=== PATIENT | female | born 1990 | race Two or more races ===

== ENCOUNTER 2016-07-05 10:11 | Emergency (ER) | payer MEDICAID ==
[~2016-07-05] VITALS: Ht 152.4 cm; Wt 83.0 kg
[2016-07-05 10:46] LABS: Basophils # (auto) 0 uL; Basophils % (auto) 0.3 % (0.0-2.0); Eosinophils # (auto) 0.1 uL; Eosinophils % (auto) 0.9 % (0.0-7.0); Hematocrit 47.5 % (36.0-46.0); Hemoglobin 16.1 g/dL (12.2-16.2); Lymphocytes # (auto) 2.1 uL; Lymphocytes % (auto) 30.6 % (10.0-50.0); Mean Corpuscular Hemoglobin 29.1 pg (28.0-32.0); Mean Corpuscular Volume 85.6 fL (80.0-100.0); Mean Platelet Volume 9.2 fL (7.4-10.4); Monocytes # (auto) 0.5 uL; Monocytes % (auto) 7.4 % (0.0-12.0); Neutrophils # (auto) 4.1 uL; Neutrophils % (auto) 60.8 % (37.0-80.0); Platelet Count (auto) 302 10^3/uL (140-450); White Blood Cell 6.8 10^3/uL (4.4-10.8)
[2016-07-05 10:53] LABS: Urine Bilirubin Negative (Negative); Urine Color Yellow (Yellow); Urine Glucose Normal (Normal); Urine Ketone Negative (Negative); Urine Mucus FEW (None Seen); Urine Nitrite Negative (Negative); Urine RBC 1 /hpf (0 - 4); Urine Squamous Epithelial Cell FEW /hpf (<5); Urine Urobilinogen Normal (Negative); Urine pH 5.5 (5.0-8.0)
[2016-07-05 10:54] LABS: Urine Blood 1+ /uL (Negative)
[2016-07-05 11:10] LABS: Albumin 4.4 g/dL (3.4-5.0); BUN/Creatinine Ratio 14.3; Bilirubin, Total 0.3 mg/dL (0.2-1.0); Calcium 9.8 mg/dL (8.5-10.1); Potassium 3.8 mmol/L (3.5-5.1)
[2016-07-05 11:20] VITALS: BP 117/87
== END 2016-07-05 12:49 | disposition home or self-care (01) ==
LOC: ER 10:15
DX: E86.0 Dehydration (principal)
CPT/HCPCS: 36415; 80053; 81001; 85025

== ENCOUNTER 2016-09-20 01:40 | Emergency (ER) | payer MEDICAID ==
[~2016-09-20] VITALS: Ht 152.4 cm; Wt 82.6 kg
[2016-09-20 01:59] LABS: Urine RBC None Seen /hpf (0 - 4)
[2016-09-20 02:06] LABS: Urine Bilirubin Negative (Negative); Urine Blood Negative /uL (Negative); Urine Color Yellow (Yellow); Urine Glucose Normal (Normal); Urine Ketone Negative (Negative); Urine Nitrite Negative (Negative); Urine Squamous Epithelial Cell FEW /hpf (<5); Urine Urobilinogen Normal (Negative); Urine pH 6.5 (5.0-8.0)
[2016-09-20 02:15] LABS: Basophils # (auto) 0 uL; Basophils % (auto) 0.5 % (0.0-2.0); CONDITION Y; Eosinophils # (auto) 0.1 uL; Eosinophils % (auto) 0.7 % (0.0-7.0); Hematocrit 39.9 % (36.0-46.0); Hemoglobin 13.6 g/dL (12.2-16.2); Lymphocytes # (auto) 3.3 uL; Mean Corpuscular Hemoglobin 28.8 pg (28.0-32.0); Mean Corpuscular Hgb Conc. 34.1 g/dL (32.0-36.0); Mean Corpuscular Volume 84.6 fL (80.0-100.0); Monocytes # (auto) 0.8 uL; Monocytes % (auto) 10.2 % (0.0-12.0); Neutrophils # (auto) 3.5 uL; Neutrophils % (auto) 45.6 % (37.0-80.0); Platelet Count (auto) 304 10^3/uL (140-450); Red Cell Distribution Width 13.3 % (11.6-16.0); White Blood Cell 7.6 10^3/uL (4.4-10.8)
[2016-09-20 02:44] LABS: Albumin 3.5 g/dL (3.4-5.0); BUN/Creatinine Ratio 14.9; Calcium 8.6 mg/dL (8.5-10.1); Potassium 3.7 mmol/L (3.5-5.1)
[2016-09-20 02:46] LABS: Bilirubin, Total 0.4 mg/dL (0.2-1.0); Total Protein 7.6 g/dL (6.4-8.2)
[2016-09-20 04:47] VITALS: BP 109/62
[2016-09-20] MEDS ORDERED: HYDROcodone-ACET 5/325MG TAB PO ONE (05:45)
== END 2016-09-20 06:05 | disposition home or self-care (01) ==
LOC: ER 01:41
DX: E86.0 Dehydration (principal); R51 Headache; T67.5XXA Heat exhaustion, unspecified, initial encounter
CPT/HCPCS: 36415; 70450; 80053; 80307; 81001; 81025; 82150; 83690; 85025

== ENCOUNTER 2016-12-27 15:21 | Emergency (ER) | payer MEDICAID ==
[~2016-12-27] VITALS: Ht 170.2 cm; Wt 80.3 kg
[2016-12-27 15:59] LABS: Basophils # (auto) 0 uL; Basophils % (auto) 0.6 % (0.0-2.0); Eosinophils # (auto) 0.1 uL; Hematocrit 41.6 % (36.0-46.0); Hemoglobin 14.5 g/dL (12.2-16.2); Lymphocytes # (auto) 2.7 uL; Lymphocytes % (auto) 35.4 % (10.0-50.0); Mean Corpuscular Hgb Conc. 34.9 g/dL (32.0-36.0); Mean Corpuscular Volume 86.1 fL (80.0-100.0); Monocytes # (auto) 0.6 uL; Monocytes % (auto) 7.2 % (0.0-12.0); Neutrophils # (auto) 4.3 uL; Neutrophils % (auto) 55.8 % (37.0-80.0); Platelet Count (auto) 279 10^3/uL (140-450); Red Blood Cells 4.83 10^6/uL (4.0-5.20); Red Cell Distribution Width 12.6 % (11.8-14.3); White Blood Cell 7.7 10^3/uL (4.4-10.8)
[2016-12-27 16:05] LABS: Urine Bacteria FEW /hpf (None Seen); Urine Blood Negative /uL (Negative); Urine Mucus FEW (None Seen); Urine Specific Gravity 1.027 (1.001-1.035); Urine WBC 5 /hpf (0 - 5)
[2016-12-27 16:18] LABS: Albumin 3.9 g/dL (3.4-5.0); Bilirubin, Total 0.2 mg/dL (0.2-1.0); Calcium 9.1 mg/dL (8.5-10.1); Potassium 3.9 mmol/L (3.5-5.1)
[2016-12-27 18:06] VITALS: BP 107/62
[2016-12-27] MEDS ORDERED: NITROFURANTOIN (MONO) 100 mg CAP PO ONE (19:30)
== END 2016-12-27 20:09 | disposition home or self-care (01) ==
LOC: ER 15:41
DX: N39.0 Urinary tract infection, site not specified (principal)
CPT/HCPCS: 36415; 80053; 81001; 84702; 85025

== ENCOUNTER 2018-03-05 21:14 | Emergency (ER) | payer MEDICAID ==
[~2018-03-05] VITALS: Ht 152.4 cm; Wt 81.6 kg
[2018-03-05 22:09] LABS: Basophils # (auto) 0 uL; Basophils % (auto) 0.2 % (0.0-2.0); Eosinophils # (auto) 0.1 uL; Eosinophils % (auto) 0.6 % (0.0-7.0); Hematocrit 41.4 % (36.0-46.0); Hemoglobin 14.1 g/dL (12.2-16.2); Lymphocytes # (auto) 2.4 uL; Lymphocytes % (auto) 27.4 % (10.0-50.0); Mean Corpuscular Hemoglobin 29.3 pg (28.0-32.0); Mean Corpuscular Volume 86.3 fL (80.0-100.0); Monocytes # (auto) 0.8 uL; Monocytes % (auto) 8.6 % (0.0-12.0); Neutrophils # (auto) 5.6 uL; Neutrophils % (auto) 63.2 % (37.0-80.0); Nucleated Red Blood Cells % 0.1 %; Platelet Count (auto) 234 10^3/uL (140-450); Red Cell Distribution Width 13.3 % (11.8-14.3); White Blood Cell 8.8 10^3/uL (4.4-10.8)
[2018-03-05 22:23] LABS: INR 1.01 (0.9-1.15); Partial Thromboplastin Time 30.8 sec (23.78-33.04); Prothrombin Time 10.8 sec (9.27-12.13)
[2018-03-05 22:23] LABS: Urine Bacteria FEW /hpf (None Seen); Urine Blood 2+ /uL (Negative); Urine Hyaline Cast FEW /lpf (0 - 2); Urine Mucus FEW (None Seen); Urine Specific Gravity 1.023 (1.001-1.035); Urine WBC 14 /hpf (0 - 5)
[2018-03-05 22:24] LABS: Albumin 3.7 g/dL (3.4-5.0); Potassium 3.5 mmol/L (3.5-5.1)
[2018-03-05 22:26] LABS: Bilirubin, Total 0.2 mg/dL (0.2-1.0); Total Protein 7.5 g/dL (6.4-8.2)
[2018-03-05 23:31] VITALS: BP 103/75
== END 2018-03-06 01:10 | disposition home or self-care (01) ==
LOC: ER 21:21
DX: O23.41 Unspecified infection of urinary tract in pregnancy, first trimester (principal); Z3A.01 Less than 8 weeks gestation of pregnancy
CPT/HCPCS: 36415; 76801; 80053; 81001; 84702; 85025; 85610; 85730

== ENCOUNTER 2018-07-22 12:05 | Observation (INO) | payer MEDICAID ==
[~2018-07-22] VITALS: Ht 152.4 cm; Wt 88.0 kg
[~2018-07-22 12:05] MED LIST: PREN-96 PO
[2018-07-22 14:16] LABS: Protein, Urine 13.7 mg/dL (0.0-11.9)
[2018-07-22 14:20] LABS: 24 Hr. Total Protein, Urine 321.9 mg/24 Hr (<149.1)
== END 2018-07-22 13:40 | disposition home or self-care (01) | DRG 563 ==
LOC: INTOOBSV 12:05 → LDRP 12:05
PROVIDERS: ADMIT Obstetrics & Gynecology; ATTEND Obstetrics & Gynecology
DX: O60.03 Preterm labor without delivery, third trimester (principal); Z3A.28 28 weeks gestation of pregnancy
CPT/HCPCS: 59025; 81002; 84156; G0378

== ENCOUNTER 2018-07-30 11:50 | Observation (INO) | payer MEDICAID | END 2018-07-30 12:30 | disposition home or self-care (01) | DRG 563 | LOC: LDRP 11:50 | PROVIDERS: ADMIT Obstetrics & Gynecology; ATTEND Obstetrics & Gynecology | DX: O60.03 Preterm labor without delivery, third trimester (principal); O13.3 Gestational [pregnancy-induced] hypertension without significant proteinuria, third trimester; Z3A.29 29 weeks gestation of pregnancy | CPT/HCPCS: 59025; 81002; G0378 ==

== ENCOUNTER 2018-08-05 11:00 | Observation (INO) | payer MEDICAID | END 2018-08-05 12:15 | disposition home or self-care (01) | DRG 566 | LOC: LDRP 11:00 | PROVIDERS: ADMIT Obstetrics & Gynecology; ATTEND Obstetrics & Gynecology | DX: O24.419 Gestational diabetes mellitus in pregnancy, unspecified control (principal); O13.9 Gestational [pregnancy-induced] hypertension without significant proteinuria, unspecified trimester; Z3A.30 30 weeks gestation of pregnancy | CPT/HCPCS: 59025; 81002; 82962; G0378 ==

== ENCOUNTER 2018-08-20 14:59 | Observation (INO) | payer MEDICAID ==
[2018-08-20] MEDS ORDERED: BETAMETHASONE ACET (6MG/ML) 5ML VIAL IM ONE (16:30)
== END 2018-08-20 16:05 | disposition home or self-care (01) | DRG 566 ==
LOC: LDRP 14:59
PROVIDERS: ADMIT Specialist; ATTEND Specialist
DX: O13.3 Gestational [pregnancy-induced] hypertension without significant proteinuria, third trimester (principal); O24.419 Gestational diabetes mellitus in pregnancy, unspecified control; O26.893 Other specified pregnancy related conditions, third trimester; R51 Headache; Z3A.32 32 weeks gestation of pregnancy
CPT/HCPCS: 59025; 81002; 82962; G0378

== ENCOUNTER 2018-10-03 03:55 | Inpatient (IN) | payer MEDICAID ==
[~2018-10-03] VITALS: Ht 152.4 cm; Wt 89.8 kg
[2018-10-03] VITALS (12 sets, daily range): BP systolic 95–113; BP diastolic 48–75
[2018-10-03 05:08] LABS: Basophils # (auto) 0 uL; Basophils % (auto) 0.4 % (0.0-2.0); Eosinophils # (auto) 0 uL; Eosinophils % (auto) 0.4 % (0.0-7.0); Hematocrit 40.4 % (36.0-46.0); Hemoglobin 13.6 g/dL (12.2-16.2); Lymphocytes # (auto) 2.1 uL; Lymphocytes % (auto) 28.8 % (10.0-50.0); Mean Corpuscular Hemoglobin 29.6 pg (28.0-32.0); Mean Corpuscular Hgb Conc. 33.8 g/dL (32.0-36.0); Mean Corpuscular Volume 87.7 fL (80.0-100.0); Monocytes # (auto) 0.6 uL; Monocytes % (auto) 8.2 % (0.0-12.0); Neutrophils # (auto) 4.6 uL; Neutrophils % (auto) 62.2 % (37.0-80.0); Nucleated Red Blood Cells % 0.1 %; Platelet Count (auto) 167 10^3/uL (140-450); Red Blood Cells 4.61 10^6/uL (4.0-5.20); Red Cell Distribution Width 13.9 % (11.8-14.3); White Blood Cell 7.4 10^3/uL (4.4-10.8)
[2018-10-03 05:26] LABS: INR < 0.93 (0.9-1.15); Partial Thromboplastin Time 24.7 sec (23.64-32.05)
[2018-10-03 05:30] LABS: Albumin 2.4 g/dL (3.4-5.0); BUN/Creatinine Ratio 20.7; Potassium 3.7 mmol/L (3.5-5.1)
[2018-10-03 05:33] LABS: Bilirubin, Total 0.1 mg/dL (0.2-1.0); Total Protein 6.5 g/dL (6.4-8.2)
[2018-10-03 05:34] LABS: Urine Bacteria FEW /hpf (None Seen); Urine Blood Negative /uL (Negative); Urine Specific Gravity 1.015 (1.001-1.035); Urine WBC 62 /hpf (0 - 5)
[2018-10-03] MEDS: LACTATED RINGER'S 1,000 ML IV SCH ×4 (06:57→21:13)
[2018-10-03] MEDS ORDERED: PHENYLEPHRINE HCL 10 MG/ML VL IV ONE (07:18)
[2018-10-03] MEDS ORDERED: TETRACAINE 1% INJ 2 ML VIAL IJ ONE (07:20)
[2018-10-03] MEDS ORDERED: fentaNYL CITRATE 100 MCG/2 ML VL ONE (07:30)
[2018-10-03] MEDS ORDERED: MIDAZOLAM HCL 1MG/1ML-2 ML VIAL ONE (07:30)
[2018-10-03] MEDS ORDERED: MORPHINE SULF(PF) 0.5MG/ML 10ML VIAL ONE (07:30)
[2018-10-03] MEDS ORDERED: ceFAZolin 1GM VL ONE (07:45)
[2018-10-03] MEDS ORDERED: OXYTOCIN 10 UNIT/ML 10ML VIAL ONE (07:45)
[2018-10-03] MEDS ORDERED: ONDANSETRON HCL 4 MG/2 ML VIAL IV PRN ×2 (07:45→09:15)
[2018-10-03] MEDS ORDERED: ceFAZolin 1GM/50ML 50 ML IV SCH (07:45)
[2018-10-03] MEDS ORDERED: MEPERIDINE HCL (25 MG/ML) 1ML VIAL ONE (09:09)
[2018-10-03] MEDS ORDERED: ePHEDrine SULFATE 50 MG/ML AMP IV PRN (09:15)
[2018-10-03] MEDS ORDERED: HYDROmorphone HCL 2 MG/ML VL IV PRN (09:15)
[2018-10-03] MEDS ORDERED: LABETALOL HCL 5 MG/ML 4ML SYRINGE IV PRN (09:15)
[2018-10-03] MEDS ORDERED: NALBUPHINE HCL 10 MG/1ml INJECTION SUBCUT ONE (09:15)
[2018-10-03] MEDS ORDERED: DexAMETHasone SOD PHOS 10MG/1ML VIAL INJ IV PRN (09:15)
[2018-10-03] MEDS ORDERED: diphenhdrAMINE HCL 50 MG/1 ML VL IV PRN (09:15)
[2018-10-03] MEDS ORDERED: NALOXONE HCL 0.4 MG/ML VIAL IV PRN (09:15)
[2018-10-03] MEDS: LACT. RINGERS/OXYTOCIN 20UNITS 1,000 ML IV SCH ×3 (10:05→23:48)
--- NOTE | 2018-10-03 10:05 | NUR ---
Post Op for LDRP: Received patient from PACU via bed A to room 107 . Patient A/A/Ox4, abdominal binder and bilateral SCD's are in place, IV fluids placed on pump and infusing per order, incisional site dressing clean/dry/intact and Martinez Catheter to gravity draining clear yellow urine. Incentive Spirometer at bedside and instruction on proper use with return demonstration done by patient.
[2018-10-03] MEDS ORDERED: ACYC1CAP23 PO (11:10)
[2018-10-03] MEDS: MORPHINE SULFATE 4 MG/ML SYR/VIAL IV PRN ×3 (11:54→20:56)
[2018-10-03] MEDS ORDERED: RHO (D) IMMUNE GLOBULIN 300 MCG INJ IM ONE (15:15)
[2018-10-03] MEDS: ceFAZolin 1GM/50ML 50 ML IV SCH ×2 (15:30→23:47)
--- NOTE | 2018-10-03 18:08 | NUR ---
Called blood bank to see if medication rhogam is ready per blood bank tech erick not ready but will call when ready. gave ext # [phone] to call night rn when ready.
[2018-10-03 20:47] LABS: Basophils # (auto) 0 uL; Basophils % (auto) 0.2 % (0.0-2.0); Eosinophils # (auto) 0 uL; Eosinophils % (auto) 0.4 % (0.0-7.0); Hematocrit 37.9 % (36.0-46.0); Hemoglobin 12.9 g/dL (12.2-16.2); Lymphocytes # (auto) 1.7 uL; Mean Corpuscular Hemoglobin 29.8 pg (28.0-32.0); Mean Corpuscular Hgb Conc. 33.9 g/dL (32.0-36.0); Mean Corpuscular Volume 87.9 fL (80.0-100.0); Monocytes # (auto) 0.6 uL; Monocytes % (auto) 6.7 % (0.0-12.0); Neutrophils % (auto) 74.7 % (37.0-80.0); Platelet Count (auto) 135 10^3/uL (140-450); Red Blood Cells 4.31 10^6/uL (4.0-5.20); Red Cell Distribution Width 14.1 % (11.8-14.3); White Blood Cell 9.3 10^3/uL (4.4-10.8)
--- NOTE | 2018-10-03 21:13 | NUR ---
NOTIFIED [place] [facility]OR[facility] CNM, STATUS UPDATE GIVEN, TRENDING VITAL SIGNS GIVEN, PT HAS ACTIVE BOWEL SOUNDS, NO FLATUS AT THIS TIME, PT STATES SHE FEELS HER LOWER EXTREMITIES. ORDERS RECEIVED FROM [place] [facility] CNM FOR AMBULATION, ICE CHIPS, AND REMOVE ABDOMINAL DRESSING. READ BACK AND VERIFIED ORDERS. WILL CARRY OUT.
--- NOTE | 2018-10-03 23:15 | NUR ---
Ambulation: Patient OOB with standby assistance by RN. Patient ambulated to beside chair with steady gait. [facility]icare teaching provided in bed by RN. Clean gown provided and bed linen changed. Pts hazel catheter is patent and draining yellow urine to gravity. No kinks or blader distention noted. Pt states she would like to sit in the chair for a while. No distress noted. Will continue to monitor.
[2018-10-04] MEDS: MORPHINE SULFATE 4 MG/ML SYR/VIAL IV PRN ×2 (02:37→07:58)
[2018-10-04] MEDS: LACTATED RINGER'S 1,000 ML IV SCH (02:45)
[2018-10-04 02:54] VITALS: BP 103/57
[2018-10-04 06:40] VITALS: BP 109/71
[2018-10-04 07:06] LABS: RPR Non Reactive (Non Reactive)
[2018-10-04] MEDS: ceFAZolin 1GM/50ML 50 ML IV SCH (07:58)
[2018-10-04] MEDS ORDERED: HYDROcodone-ACET 5/325MG TAB PO PRN (08:15)
[2018-10-04] MEDS ORDERED: BISACODYL 10 MG RECT SUPP PR PRN (08:15)
[2018-10-04] MEDS: IBUPROFEN 800 MG TAB PO PRN ×2 (08:30→16:32)
[2018-10-04 09:25] LABS: Basophils # (auto) 0 uL; Basophils % (auto) 0.3 % (0.0-2.0); Eosinophils # (auto) 0 uL; Eosinophils % (auto) 0.2 % (0.0-7.0); Hematocrit 39.8 % (36.0-46.0); Hemoglobin 13.8 g/dL (12.2-16.2); Lymphocytes # (auto) 1.4 uL; Lymphocytes % (auto) 13.7 % (10.0-50.0); Mean Corpuscular Hemoglobin 30.5 pg (28.0-32.0); Mean Corpuscular Hgb Conc. 34.6 g/dL (32.0-36.0); Mean Corpuscular Volume 88.1 fL (80.0-100.0); Monocytes # (auto) 0.7 uL; Monocytes % (auto) 7.4 % (0.0-12.0); Neutrophils # (auto) 7.9 uL; Neutrophils % (auto) 78.4 % (37.0-80.0); Platelet Count (auto) 150 10^3/uL (140-450); Red Blood Cells 4.52 10^6/uL (4.0-5.20); Red Cell Distribution Width 14.2 % (11.8-14.3); White Blood Cell 10.1 10^3/uL (4.4-10.8)
[2018-10-04] MEDS: DOCUSATE CALCIUM 240 MG CAP PO SCH (10:45)
[2018-10-04] MEDS: DOCUSATE SOD 100 MG CAP PO SCH ×2 (10:45→21:47)
[2018-10-04 12:31] VITALS: BP 107/72
[2018-10-04] MEDS: SIMETHICONE 80 MG CHEWABLE TABLET PO SCH ×3 (12:39→21:47)
[2018-10-04] MEDS: ACETAMINOPHEN 325 MG TAB PO PRN ×2 (12:39→21:09)
[2018-10-04 14:57] VITALS: BP 97/59
[2018-10-04] MEDS ORDERED: TETANUS-DIPTH-ACEL PERTUSSIS 0.5ML SYRG IM ONE (15:00)
[2018-10-04 19:49] VITALS: BP 111/65
[2018-10-04 23:00] VITALS: BP 103/69
[2018-10-05] MEDS: IBUPROFEN 800 MG TAB PO PRN ×2 (02:37→14:56)
[2018-10-05 02:51] VITALS: BP 110/60
--- NOTE | 2018-10-05 03:48 | NUR ---
PT STATES INCISION IS A LITTLE WET. ASSESSMENT OF INCISION DONE. INCISION EDGES APPROXIMATED, NO REDNESS, EDEMA OR DRAINAGE OR SIGNS OF INFECTION NOTED. KASSIDY INTACT. WILL CONTINUE TO MONITOR
[2018-10-05] MEDS: ACETAMINOPHEN 325 MG TAB PO PRN ×2 (04:54→19:34)
[2018-10-05] MEDS: SIMETHICONE 80 MG CHEWABLE TABLET PO SCH ×4 (06:00→23:31)
--- NOTE | 2018-10-05 06:15 | NUR ---
IV removal IV DC'd with sterile technique, catheter fully intact. Pressure dressing applied to site. Patient tolerated procedure well. Discharged with aftercare instructions per MD.
[2018-10-05 06:45] VITALS: BP 99/65
--- NOTE | 2018-10-05 06:45 | NUR ---
LOWER ABDOMINAL INCISION CLEAN, DRY AND WELL APPROXIMATED WITH KASSIDY PRESENT AND INTACT. Addendum: 10/05/18 at 1039 by Juju Avila RN Amended: Links added.
[2018-10-05] MEDS: DOCUSATE CALCIUM 240 MG CAP PO SCH (09:58)
[2018-10-05] MEDS: DOCUSATE SOD 100 MG CAP PO SCH ×2 (09:58→23:31)
[2018-10-05] MEDS: HYDROcodone-ACET 5/325MG TAB PO PRN (10:03)
[2018-10-05 11:05] VITALS: BP 115/77
[2018-10-05 15:02] VITALS: BP 111/63
--- NOTE | 2018-10-05 15:34 | NUR ---
Pt refused Mylicon at 0600, 1200. Pt explained benefits of compliance with ordered medications, continued to decline medication. Pt requests pill for gas at this time. Medication administered late, see eMAR.
[2018-10-05 19:15] VITALS: BP 105/87
[2018-10-05 23:00] VITALS: BP 99/60
[2018-10-06] MEDS: HYDROcodone-ACET 5/325MG TAB PO PRN (01:39)
[2018-10-06 02:45] VITALS: BP 101/60
[2018-10-06] MEDS: SIMETHICONE 80 MG CHEWABLE TABLET PO SCH (05:33)
[2018-10-06] MEDS: IBUPROFEN 800 MG TAB PO PRN (05:34)
--- NOTE | 2018-10-06 06:45 | NUR ---
Discharge: Discharge instructions given as ordered. Pt encouraged to follow up with ASSOCIATE SOFTWARE APPLICATION ENGINEER as instructed. All questions and concerns addressed. Patient verbalized understanding. Medication reconciliation completed and copy given to patient. All required/requested vaccines given and copies of vaccinations given to patient. Patient encouraged to prepare to depart unit.
[2018-10-06 09:32] VITALS: BP 107/65
--- NOTE | 2018-10-06 09:32 | NUR ---
Discharge: Patient taken to vehicle by walking with all personal belongings, accompanied by staff and family member. No distress noted at time of departure, no adverse changes in status since initial assessment.
== END 2018-10-06 09:32 | disposition home or self-care (01) | DRG 540 ==
LOC: LDRP 03:55 → NUR 10-04 11:50 → LDRP 10-04 21:44
PROVIDERS: ADMIT Obstetrics & Gynecology; ATTEND Obstetrics & Gynecology
PROC: 0UL70CZ Occlusion of Bilateral Fallopian Tubes with Extraluminal Device, Open Approach (ICD-10-PCS; 2018-10-03)
PROC: 3E0234Z Introduction of Serum, Toxoid and Vaccine into Muscle, Percutaneous Approach (ICD-10-PCS; 2018-10-03)
PROC: 10D00Z1 Extraction of Products of Conception, Low, Open Approach (ICD-10-PCS; principal; 2018-10-03 07:21)
DX: O34.211 Maternal care for low transverse scar from previous cesarean delivery (principal); E66.01 Morbid (severe) obesity due to excess calories; O99.214 Obesity complicating childbirth; O36.0930 Maternal care for other rhesus isoimmunization, third trimester, not applicable or unspecified; Z30.2 Encounter for sterilization; Z37.0 Single live birth; Z3A.39 39 weeks gestation of pregnancy; Z67.91 Unspecified blood type, Rh negative
CPT/HCPCS: 36415; 51702; 59025; 80053; 81001; 81002; 82962; 84112; 85025; 85610; 85730; 86592; 86850; 86900; 86901; 90384; 90715; 94762; 96361; 96365; 96366; 96374; 96375; G0378; J0690; J2250; J2405; J2590

== ENCOUNTER 2019-03-11 21:06 | Emergency (ER) | payer MEDICAID ==
[~2019-03-11] VITALS: Ht 152.4 cm; Wt 80.3 kg
[~2019-03-11 21:06] MED LIST changes: +ACYC1CAP23 PO
[2019-03-11 21:14] VITALS: BP 137/77
[2019-03-11 21:40] LABS: Eosinophils # (auto) 0.1 uL; Eosinophils % (auto) 1.4 % (0.0-7.0); Lymphocytes # (auto) 2.8 uL; Monocytes # (auto) 0.8 uL; Red Blood Cells 4.74 10^6/uL (4.0-5.20)
[2019-03-11 21:51] LABS: Basophils # (auto) 0 uL; Basophils % (auto) 0.5 % (0.0-2.0); Hematocrit 40.2 % (36.0-46.0); Hemoglobin 13.7 g/dL (12.2-16.2); Lymphocytes % (auto) 29.6 % (10.0-50.0); Mean Corpuscular Hgb Conc. 34.2 g/dL (32.0-36.0); Mean Corpuscular Volume 84.8 fL (80.0-100.0); Monocytes % (auto) 8.3 % (0.0-12.0); Neutrophils # (auto) 5.8 uL; Neutrophils % (auto) 60.2 % (37.0-80.0); Platelet Count (auto) 294 10^3/uL (140-450); Red Cell Distribution Width 13.2 % (11.8-14.3); White Blood Cell 9.6 10^3/uL (4.4-10.8)
[2019-03-11 22:01] LABS: Albumin 3.7 g/dL (3.4-5.0); Calcium 9.4 mg/dL (8.5-10.1); Potassium 3.8 mmol/L (3.5-5.1)
[2019-03-11 22:04] LABS: BUN/Creatinine Ratio 14.1; Bilirubin, Total 0.2 mg/dL (0.2-1.0); Total Protein 7.9 g/dL (6.4-8.2)
[2019-03-11 22:12] LABS: INR 0.96 (0.9-1.15); Partial Thromboplastin Time 27.8 sec (23.64-32.05)
[2019-03-11 23:01] LABS: Urine Bacteria FEW /hpf (None Seen); Urine Blood 3+ /uL (Negative); Urine Specific Gravity 1.008 (1.001-1.035); Urine WBC 30 /hpf (0 - 5)
== END 2019-03-12 09:30 | disposition left against medical advice (07) ==
LOC: ER 21:10
DX: N93.9 Abnormal uterine and vaginal bleeding, unspecified (principal); Z53.21 Procedure and treatment not carried out due to patient leaving prior to being seen by health care provider
CPT/HCPCS: 36415; 80053; 81001; 84702; 85025; 85610; 85730; 86850; 86900; 86901

== ENCOUNTER 2024-02-21 19:12 | Emergency (ER) | payer MEDICAID ==
[~2024-02-21] VITALS: Ht 152.4 cm; Wt 89.9 kg
[~2024-02-21 19:12] MED LIST changes: -ACYC1CAP23 PO; +ACYC200C22 PO
--- NOTE | 2024-02-21 19:32 | ED.PDOC ---
History of Present Illness HPI Comments 33-year-old female presents with a chief complaint of vaginal bleeding x 2 months with associated dizziness, chest pain, and SOB. Patient reports that she has been having a heavy menstrual cycle since December 2023 and is passing clots. Patient mentions that she saw her PMD a few days ago and had a HGB of 8.0 and was given a referral for an DITCHER. Patient mentions that her appointment with DITCHER will be on the 02/27/2024. Patient reports that she has also been taking Iron supplements during these past two months. Time Seen by MD: 19:23 Reviewed Notes: Medications, Allergies Allergies: Uncoded Allergies: ADHESIVE TAPE (Allergy, Mild, 10/03/18) Home Meds Active Scripts Medroxyprogesterone Acetate (PROVERA) 5 Mg Tab, 1 TAB PO DAILY for 10 Days, #10 TAB 11 Refills Prov:TARIQ EAST MD 02/21/24 Reported Medications Acyclovir (Acyclovir) 200 Mg Cap, 800 MG PO DAILY, TAB 10/03/18 Vit W/ Ferrous Fumara ( One Daily) Daily Tab, 1 TAB PO DAILY, #90 TAB 3 Refills 07/18/18 Information Source: Patient Mode of Arrival: Ambulatory Severity: Moderate Timing: Months Duration: Since onset Prehospital treatment: None Past Medical History PAST MEDICAL HISTORY: Denies Surgical History: Denies all surgeries PLUMBING DRAFTER History: No Pertinent PLUMBING DRAFTER History Family History Family History: No family hx of HTN Social History Smoker: Non-Smoker Alcohol: Denies ETOH Use Drugs: Denies Drug Use Lives In: Home Constitutional: denies: chills, diaphoresis, fatigue, fever, malaise, sweats, weakness, others EENTM: denies: blurred vision, double vision, ear bleeding, ear discharge, ear drainage, ear pain, ear ringing, eye pain, eye redness, hearing loss, mouth pain, mouth swelling, nasal discharge, nose bleeding, nose congestion, nose pain, photophobia, tearing, throat pain, throat swelling, voice changes, others Respiratory: reports: shortness of breath; denies: cough, hemoptysis, orthopnea, SOB at rest, SOB with excertion, stridor, wheezing, others Cardiovascular: reports: chest pain; denies: dizzy spells, diaphoresis, Dyspnea on exertion, edema, irregular heart beat, left arm pain, lightheadedness, palpitations, PND, syncope, others Gastrointestinal: denies: abdomen distended, abdominal pain, blood streaked bowels, constipated, diarrhea, dysphagia, difficulty swallowing, hematemesis, melena, nausea, poor appetite, poor fluid intake, rectal bleeding, rectal pain, vomiting, others Genitourinary: reports: abnormal vagina bleeding; denies: burning, dyspareunia, dysuria, flank pain, frequency, hematuria, incontinence, pain, , vagina discharge, urgency, others Neurological: reports: dizziness; denies: fainting, headache, left sided numbness, left sided weakness, numbness, paresthesia, pre-existing deficit, right sided numbness, right sided weakness, seizure, speech problems, tingling, tremors, weakness, others Musculoskeletal: denies: back pain, gout, joint pain, joint swelling, muscle pain, muscle stiffness, neck pain, others Integumetry: denies: bruises, change in color, change in hair/nails, dryness, laceration, lesions, lumps, rash, wounds, others Allergic/Immunocompromised: denies: Difficulty Healing, Frequent Infections, Hives, Itching, others Hematologic/Lymphatic: denies: anemia, blood clots, easy bleeding, easy bruising, swollen glands, others Endocrine: denies: excessive hunger, excessive sweating, excessive thirst, excessive urination, flushing, intolerance to cold, intolerance to heat, unexp lained weight gain, unexplained weight loss, others Psychiatric: denies: anxiety, bipolar disorder, depression, hopeless, panic disorder, schizophrenia, sleepless, suicidal, others All Other Systems: Reviewed and Negative Physical Exam General Appearance: No Apparent Distress, Normal HEENT: Normal ENT Inspection, Pharynx Normal, TMs Normal Neck: Full Range of Motion, Non-Tender, Normal, Normal Inspection Respiratory: Chest Non-Tender, Lungs Clear, No Accessory Muscle Use, No Respiratory Distress, Normal Breath Sounds Cardiovascular: No Edema, No JVD, No Murmur, No Gallop, Normal Peripheral Pulse s, Regular Rate/Rhythm Breast Exam: Deferred Gastrointestinal: No Organomegaly, Non Tender, No Pulsatile Mass, Normal Bowel Sounds, Soft Genitalia: Deferred Pelvic: Deferred Rectal: Deferred Extremities: No calf tenderness, Normal capillary refill, Normal inspection, Normal range of motion, Non-tender, No pedal edema Musculoskeletal : Apperance: Normal Neurologic: Alert, barrel line operator II-XII nml as Tested, No Motor Deficits, Normal Affect, Normal Mood, No Sensory Deficits Cerebellar Function: Normal Reflexes: Normal Skin: Dry, Normal Color, Warm Lymphatic: No Adenopathy Was a procedure done? Was a procedure done?: No Differential Dx Considerations may include: Differential diagnosis includes but is not limited to: miscarriage, ectopic , uterine fibroids, coagulopathy, symptomatic anemia, hypovolemia and o thers X-Ray, Labs, Meds, VS Vital Signs Date Time Temp Pulse Resp B/P (MAP) Pulse Ox O2 Delivery O2 Flow Rate FiO2 02/21/24 20:54 93 18 100 Room Air 02/21/24 20:54 97.9 93 18 122/50 (74) 100 97.9 02/21/24 19:20 97.9 93 18 122/43 (69) 100 Lab Test 02/21/24 19:31 Range/Units White Blood Count 6.6 4.4-10.8 10^3/uL Red Blood Count 3.87 L 4.0-5.20 10^6/uL Hemoglobin 9.8 L 12.2-16.2 g/dL Hematocrit 31.1 L 36.0-46.0 % Mean Corpuscular Volume 80.4 80.0-100.0 fL Mean Corpuscular Hemoglobin 25.4 L 28.0-32.0 pg Mean Corpuscular Hemoglobin Concent 31.6 L 32.0-36.0 g/dL Red Cell Distribution Width 20.3 H 11.8-14.3 % Platelet Count 346 140-450 10^3/uL Mean Platelet Volume 8.7 6.9-10.8 fL Neutrophils (%) (Auto) 67.8 37.0-80.0 % Lymphocytes (%) (Auto) 23.2 10.0-50.0 % Monocytes (%) (Auto) 7.8 0.0-12.0 % Eosinophils (%) (Auto) 0.8 0.0-7.0 % Basophils (%) (Auto) 0.4 0.0-2.0 % Neutrophils # (Auto) 4.5 1.6-8.6 10 ^3/uL Lymphocytes # (Auto) 1.5 0.4-5.4 10 ^3/uL Monocytes # (Auto) 0.5 0-1.3 10 ^3/uL Eosinophils # (Auto) 0.1 0-0.8 10 ^3/uL Basophils # (Auto) 0 0-0.2 10 ^3/uL Nucleated Red Blood Cells 0.1 % Prothrombin Time 10.7 9.3-11.8 sec Prothrombin Time INR 1.01 0.9-1.15 Activated Partial Thromboplast Time 23.8 L 24.5-34.5 SEC Sodium Level 141 136-145 mmol/L Potassium Level 3.5 3.5-5.1 mmol/L Chloride Level 107 98-107 mmol/L Carbon Dioxide Level 27 20-31 mmol/L Anion Gap 7 5-15 Blood Urea Nitrogen 10 9-23 mg/dL Creatinine 0.77 0.550-1.02 mg/dL Glomerular Filtration Rate Calc 104 >90 mL/min BUN/Creatinine Ratio 13.0 10.0-20.0 Serum Glucose 90 74-106 mg/dL Calcium Level 10.4 8.7-10.4 mg/dL Beta HCG, Quantitative 1.5 1.5-4.2 mIU/mL Time of 1ST Reevaluation: 19:53 Reevaluation 1ST: Unchanged Time of 2ND Reevaluation: 21:00 Reevaluation 2ND: Improved Patient Education/Counseling: Diagnosis, Treatment, Prognosis Family Education/Counseling: No Family Present Departure 1 Departure Time of Disposition: 21:00 Impression: Primary Impression: Dysfunctional uterine bleeding Disposition: 01 HOME / SELF CARE / HOMELESS Condition: Stable e-Prescriptions Medroxyprogesterone Acetate (PROVERA) 5 Mg Tab 1 TAB PO DAILY for 10 Days, #10 TAB 11 Refills Prov: TARIQ EAST MD 02/21/24 Discharged With: Self Critical Care Note Critical Care Time?: No Stability Stability form required: No I personally scribed for TARIQ EAST MD ([email or web address]) on 02/21/24 at 19:32. Electronically submitted by Terrell Purcell ([email or web address]). TARIQ EAST MD Feb 21, 2024 19:32
[2024-02-21 19:46] LABS: Basophils # (auto) 0 10 ^3/uL (0-0.2); Basophils % (auto) 0.4 % (0.0-2.0); Eosinophils # (auto) 0.1 10 ^3/uL (0-0.8); Lymphocytes # (auto) 1.5 10 ^3/uL (0.4-5.4); Mean Corpuscular Hgb Conc. 31.6 g/dL (32.0-36.0); Monocytes # (auto) 0.5 10 ^3/uL (0-1.3); Monocytes % (auto) 7.8 % (0.0-12.0); Nucleated Red Blood Cells % 0.1 %
[2024-02-21 19:48] LABS: Eosinophils % (auto) 0.8 % (0.0-7.0); Hematocrit 31.1 % (36.0-46.0); Hemoglobin 9.8 g/dL (12.2-16.2); Lymphocytes % (auto) 23.2 % (10.0-50.0); Mean Corpuscular Hemoglobin 25.4 pg (28.0-32.0); Mean Corpuscular Volume 80.4 fL (80.0-100.0); Neutrophils # (auto) 4.5 10 ^3/uL (1.6-8.6); Neutrophils % (auto) 67.8 % (37.0-80.0); Platelet Count (auto) 346 10^3/uL (140-450); Red Blood Cells 3.87 10^6/uL (4.0-5.20); Red Cell Distribution Width 20.3 % (11.8-14.3); White Blood Cell 6.6 10^3/uL (4.4-10.8)
[2024-02-21 19:51] LABS: Chloride 107 mmol/L (98-107); Potassium 3.5 mmol/L (3.5-5.1); Sodium 141 mmol/L (136-145)
[2024-02-21 19:52] LABS: Anion Gap 7 (5-15); Carbon Dioxide 27 mmol/L (20-31)
[2024-02-21 19:53] LABS: Calcium 10.4 mg/dL (8.7-10.4)
[2024-02-21 19:57] LABS: Blood Urea Nitrogen 10 mg/dL (9-23); Glucose 90 mg/dL (74-106); INR 1.01 (0.9-1.15); Partial Thromboplastin Time 23.8 SEC (24.5-34.5); Prothrombin Time 10.7 sec (9.3-11.8)
[2024-02-21] MEDS ORDERED: MEDR5TAB28 PO (20:23)
[2024-02-21 20:54] VITALS: BP 122/50; PULSE 93; RESP 18; TEMP 97.9; O2SAT 100
== END 2024-02-21 20:57 | disposition home or self-care (01) ==
LOC: ER 19:12
DX: N93.8 Other specified abnormal uterine and vaginal bleeding (principal); R10.2 Pelvic and perineal pain; Z79.624 Long term (current) use of inhibitors of nucleotide synthesis; Z79.899 Other long term (current) drug therapy
CPT/HCPCS: 36415; 80048; 84702; 85025; 85610; 85730; 86850; 86900; 86901

== ENCOUNTER 2024-09-30 19:33 | Emergency (ER) | payer MEDICAID ==
[~2024-09-30] VITALS: Ht 152.4 cm; Wt 90.9 kg
[~2024-09-30 19:33] MED LIST changes: +MEDR5TAB28 PO
[2024-09-30] MEDS ORDERED: DOXY100C4 PO (21:28)
--- NOTE | 2024-09-30 21:28 | ED.PDOC ---
History of Present Illness(SKN HPI Comments PATIENT COMES WITH C/C OF PAIN FROM SPIDER BITE ON LEFT INNER THIGH THAT SHE AQUIRED LAST NIGHT. PATIENT REPORTS GOING TO THE URGENT CARE TODAY AND WAS TOLD IF IT SPREAD TO GO TO THE ER. Chief Complaint: Animal Bite Time Seen by MD: 19:37 History of Present Illness: Nurses Notes, Medications, Allergies Allergies: Uncoded Allergies: ADHESIVE TAPE (Allergy, Mild, 10/03/18) Home Meds Active Scripts Medroxyprogesterone Acetate (PROVERA) 5 Mg Tab, 1 TAB PO DAILY for 10 Days, #10 TAB 11 Refills Prov:TARIQ EAST MD 02/21/24 Reported Medications Acyclovir (Acyclovir) 200 Mg Cap, 800 MG PO DAILY, TAB 10/03/18 Vit W/ Ferrous Fumara ( One Daily) Daily Tab, 1 TAB PO DAILY, #90 TAB 3 Refills 07/18/18 Information Source: Patient Mode of Arrival: Ambulatory Past Medical History PAST MEDICAL HISTORY: Denies Surgical History: Denies all surgeries PROFESSOR OF MECHANICAL ENGINEERING History: No Pertinent PROFESSOR OF MECHANICAL ENGINEERING History Family History Family History: No family hx of HTN Social History Smoker: Non-Smoker Alcohol: Denies ETOH Use Drugs: Denies Drug Use Lives In: Home Constitutional: denies: chills, diaphoresis, fatigue, fever, malaise, sweats, weakness, others EENTM: denies: blurred vision, double vision, ear bleeding, ear discharge, ear drainage, ear pain, ear ringing, eye pain, eye redness, hearing loss, mouth pain, mouth swelling, nasal discharge, nose bleeding, nose congestion, nose pa in, photophobia, tearing, throat pain, throat swelling, voice changes, others Respiratory: denies: cough, hemoptysis, orthopnea, SOB at rest, shortness of breath, SOB with excertion, stridor, wheezing, others Cardiovascular: denies: chest pain, dizzy spells, diaphoresis, Dyspnea on exertion, edema, irregular heart beat, left arm pain, lightheadedness, palpitations, PND, syncope, others Gastrointestinal: denies: abdomen distended, abdominal pain, blood streaked bowels, constipated, diarrhea, dysphagia, difficulty swallowing, hematemesis, melena, nausea, poor appetite, poor fluid intake, rectal bleeding, rectal pain, vomiting, others Genitourinary: denies: abnormal vagina bleeding, burning, dyspareunia, dysuria, flank pain, frequency, hematuria, incontinence, pain, , vagina discharge, urgency, others Neurological: denies: dizziness, fainting, headache, left sided numbness, left sided weakness, numbness, paresthesia, pre-existing deficit, right sided numbness, right sided weakness, seizure, speech problems, tingling, tremors, weakness, others Musculoskeletal: denies: back pain, gout, joint pain, joint swelling, muscle pain, muscle stiffness, neck pain, others Integumetry: reports: wounds (Left medial thigh); denies: bruises, change in color, change in hair/nails, dryness, laceration, lesions, lumps, rash, others Allergic/Immunocompromised: denies: Difficulty Healing, Frequent Infections, Hives, Itching, others Hematologic/Lymphatic: denies: anemia, blood clots, easy bleeding, easy bruising, swollen glands, others Endocrine: denies: excessive hunger, excessive sweating, excessive thirst, excessive urination, flushing, intolerance to cold, intolerance to heat, unexplained weight gain, unexplained weight loss, others Psychiatric: denies: anxiety, bipolar disorder, depression, hopeless, panic disorder, schizophrenia, sleepless, suicidal, others Physical Exam General Appearance: No Apparent Distress, Normal HEENT: Pharynx Normal Neck: Full Range of Motion Respiratory: Lungs Clear, No Respiratory Distress, Normal Breath Sounds Cardiovascular: No Murmur, Normal Peripheral Pulses, Regular Rate/Rhythm Breast Exam: Deferred Gastrointestinal: Non Tender, Soft Genitalia: Deferred Pelvic: Deferred Rectal: Deferred Extremities: Normal capillary refill, Normal range of motion, Non-tender, No pedal edema Musculoskeletal : Apperance: Normal Neurologic: Alert, No Motor Deficits, Normal Affect, Normal Mood, No Sensory Deficits Cerebellar Function: Normal Reflexes: NOT DONE Skin: Dry, Normal Color, Warm, Wounds (Half-dollar erythemic lesion warm tender to touch no noted streaking or centering with opening without any drainage.) Lymphatic: No Adenopathy Was a procedure done? Was a procedure done?: No Differential Diagnosis (INTG) Differential Diagnosis: Cellulitis, Insect Envenomation, Puncture Wound Differential Diagnosis: AIDS/HIV X-Ray, Labs, Meds, VS Vital Signs Date Time Temp Pulse Resp B/P (MAP) Pulse Ox O2 Delivery O2 Flow Rate FiO2 09/30/24 19:43 98.9 84 16 108/60 99 98.9 X-Ray, Labs, Meds, VS Comment Patient given Rocephin 1 g IM. Advised to stop Keflex start trial of doxycycline twice daily x7 days. Advised to follow up with PCP urgent care or back here in two days for wound re-evaluation. ER return precautions given patient indicates understanding agrees with discharge plan of care. Time of 1ST Reevaluation: 21:00 Reevaluation 1ST: Unchanged Time of 2ND Reevaluation: 21:26 Reevaluation 2ND: Improved Patient Education/Counseling: Diagnosis, Treatment, Prognosis, Need For Follow Up Family Education/Counseling: No Family Present SEPSIS Sepsis Screen Date sepsis recognized/suspect: Sep 30, 2024 Time Sepsis recognized/suspect: 1946 Recent Procedure: No On Antibiotic Therapy: No Respiratory Rate >20: No Heart Rate >90: No Temp<36 C (96.8 F) or >38.3 C: No SBP <90 or MAP <65 mmHG: No New Acute Mental Status Change: No Is the patient on CPAP, BIPAP,: No Physician Orders Ceftriaxone Sodium (Rocephin) (09/30/24 21:30) Vital Signs Date Time Temp Pulse Resp B/P (MAP) Pulse Ox O2 Delivery O2 Flow Rate FiO2 09/30/24 19:43 98.9 84 16 108/60 99 98.9 Departure 1 Departure Time of Disposition: 21:26 Impression: Primary Impression: Bug bite with infection Qualified Codes: W57.XXXD - Bitten or stung by nonvenomous insect and other nonvenomous arthropods, subsequent encounter Disposition: 01 HOME / SELF CARE / HOMELESS Condition: Stable e-Prescriptions Doxycycline Hyclate (Doxycycline Hyclate) 100 Mg Cap 1 CAP PO BID for 7 Days, #14 CAP Prov: ASHLEE NOEL 09/30/24 Discharged With: Self Critical Care Note Critical Care Time?: No Stability Stability form required: ASHLEE Richardson Sep 30, 2024 21:28
[2024-09-30 21:50] VITALS: BP 97/68; TEMP 98.7
[2024-09-30 22:00] VITALS: PULSE 81; RESP 18; O2SAT 98
[2024-09-30] MEDS: cefTRIAXone SOD 1,000 MG VL IM ONE (22:00)
[2024-09-30] MEDS: LIDOCAINE 1% HCL (LOCAL ANESTH.) INJ 20ML MDV ONE (22:05)
== END 2024-09-30 22:14 | disposition home or self-care (01) ==
LOC: ER 19:36
DX: L08.9 Local infection of the skin and subcutaneous tissue, unspecified (principal); W57.XXXA Bitten or stung by nonvenomous insect and other nonvenomous arthropods, initial encounter; Y93.89 Activity, other specified; Y92.89 Other specified places as the place of occurrence of the external cause; Y99.8 Other external cause status
CPT/HCPCS: 96372; 99283; J0696; J2003